=== PATIENT | male | born 1960 | race Two or more races ===

== ENCOUNTER 2023-06-01 13:49 | Outpatient (AMB) | payer MEDICARE, MEDICAID, SELFPAY ==
--- NOTE | 2023-06-01 13:52 | A.OFFPC_ITS ---
Vital Signs 06/01/23 13:55 Height 5 ft 2 in Weight 136 lb BMI 24.9 BP 136/80 Blood Pressure Location Lt brachial Position Sitting Intake Visit Reasons: 3 month f/u Intake Note: Patient here for a 3 month follow up, requesting nebulizer solution Interlibrary [employer] Services Librarian Required: No Accompanied by: Significant Other Allergies No Known Allergies [No Known Allergies*] Allergy (Verified 06/01/23 14:13) Medication List - Last Reconciled 06/01/23 by Ambreen Arvizu MD albuterol sulfate 90 mcg/actuation 2 puffs PO Q4-6H PRN 30 days budesonide-formoterol 80-4.5 mcg/actuation 2 puffs inhalation BID 30 days ibuprofen 400 mg PO Q8H PRN montelukast 10 mg PO BEDTIME sertraline 50 mg PO DAILY 90 days trazodone 100 mg PO BEDTIME PRN 90 days Ventolin HFA 90 mcg/actuation (albuterol sulfate) 2 puffs inhalation Q6H PRN NS Tobacco use date assessed: 06/01/23 Fall risk assessment: No Falls in past year Last assessed Fall Risk: 06/01/23 Dental Screening Dental Screen Date: 06/01/23 Did you have a dental visit in the last 12 months?: No Did you have a dental problem in the last 6 months where you did not have access to dental care?: No Was dental information given to patient?: Patient declined HPI HPI Comments History of Present Illness Details This is a 62-year-old male with COPD, mild major depression, insomnia and chronic back pain that comes today accompanied by girlfriend for follow-up on his conditions. He use rescue inhaler few times a month for his COPD and will be referred again to pulmonology. Depression stable with SSRIs. Insomnia has improved with sleep hygiene measures. Back pain stable with NSAIDs as needed. Denies any fever, bowel or bladder incontinence. No chest pain or shortness of breath. [facility] Medical History Allergic sinusitis COPD (chronic obstructive pulmonary disease) Nicotine dependence, cigarettes, uncomplicated Primary insomnia Surgical History History of colonoscopy Family History Father No problems noted. Mother Family history of cancer of vagina Social History (Updated 06/01/23 @ 14:16 by Ambreen Arvizu MD) Housing: House Alcohol intake: never Patient Tobacco Use Status: Current everyday Tobacco user Tobacco use type: Cigarette Cigarettes Per Day: 10 e-Cigarette/Vaping Use: Never Used Second Hand Smoke Exposure: No service: No Current occupational status: disabled Cognitive needs: No Hearing needs: No Vision needs: No Questionnaire Thrive Questionnaire Date Thrive assessed: 02/24/23 FRANCESCO-7 AMB Questionnaire FRANCESCO-7 Date FRANCESCO - 7 assessed: 02/24/23 Source: Developed by Drs. Silverio Wang, Mile Villalobos, Vinay Banegas and colleagues, with an educational bety from [employer]. Review of Systems Const All systems reviewed & are unremarkable except as noted in HPI and below Eyes Reports no additional complaints, Denies change in vision and Denies other visual disturbances Card Denies chest pain at rest, Denies chest pain with activity, Denies edema, Denies irregular heart rhythm, Denies claudication, Denies dyspnea, Denies dyspnea on exertion, Denies orthopnea, Denies paroxysmal nocturnal dyspnea and Denies slow heart rate Resp Denies cough, Denies dyspnea and Denies dyspnea on exertion GI Denies abdominal pain, Denies change in bowel habits, Denies excessive flatus, Denies nausea and Denies vomiting Denies urinary hesitancy, Denies urinary incontinence and Denies urinary urgency Musc Denies abnormal gait, Denies atrophy, Denies deformity and Denies limited range of motion Skin/Breast Denies bleeding lesions, Denies changing lesions and Denies rash Neuro Denies abnormal gait and Denies lack of coordination Physical exam (Primary Care) Vital Signs: Last Vital Signs BP 136/80 06/01/23 13:55 BMI result Body Mass Index 24.9 Tobacco/Smoking Status: Tobacco use Status Tobacco use date assessed 06/01/23 06/01/23 13:56 Patient Tobacco Use Status Current everyday Tobacco 06/01/23 14:16 Tobacco use type Cigarette 06/01/23 14:16 e-Cigarette/Vaping Use Never Used 06/01/23 14:16 Thrive Assessment: Date of Thrive Assessment Date Thrive assessed 02/24/23 06/01/23 13:53 Eyes General: appearance normal, both eyes and all related structures Eyelids: Yes eyelids normal Conjunctivae: conjunctivae normal Neck Neck: Yes normal visual inspection and Yes supple Resp Effort & Inspection: normal respiratory effort Auscultation: clear to auscultation bilaterally Cardio Jugular venous distension: no JVD Rate: regular rate Rhythm: regular rhythm Heart sounds: S1 normal heart sound present and S2 normal heart sound present Extrem General: Yes full ROM Assessment and Plan Assessment & Plan (1) COPD (chronic obstructive pulmonary disease): Comment: (moderately severe on 2017 PFTs - FVC 70, FEV1 77, FEV1/FVC 69, DLCO 74) Code(s): J44.9 - Chronic obstructive pulmonary disease, unspecified Plan: Continue Symbicort. Use rescue inhaler as needed. (2) Mild recurrent major depression: Code(s): F33.0 - Major depressive disorder, recurrent, mild Plan: Continue SSRIs. (3) Back pain: Code(s): M54.9 - Dorsalgia, unspecified Plan: Continue NSAIDs as needed. (4) Primary insomnia: Code(s): F51.01 - Primary insomnia Plan: Continue sleep hygiene measures. Orders: Referrals Pulmonary Medicine Referral J44.9 - Chronic obstructive pulmonary disease, unspecified Medications: New albuterol sulfate 2.5 mg (3 mL) inhalation Q4H PRN 75 mL 1RF shortness of breath or wheezing 30 days J44.9 - Chronic obstructive pulmonary disease, unspecified Discontinued albuterol sulfate 90 mcg/actuation Discontinued Reason: Insurance Denied 2 puffs PO Q4-6H 30 days PRN 8.5 grams 6RF for wheezing J44.9 - Chronic obstructive pulmonary disease, unspecified Coding Level of Care Code Est Pt Level 4 (43286) Diagnoses COPD (chronic obstructive pulmonary disease) J44.9 Mild recurrent major depression F33.0 Back pain M54.9 Primary insomnia F51.01 Time Spent (min) 22
[2023-06-01 13:55] VITALS: BP 136/80; BMI 24.9
== END 2023-06-01 14:19 | disposition home or self-care (01) ==
PROVIDERS: Visit Provider Internal Medicine
DX: J44.9 Chronic obstructive pulmonary disease, unspecified (principal); F33.0 Major depressive disorder, recurrent, mild; M54.9 Dorsalgia, unspecified; F51.01 Primary insomnia
CPT/HCPCS: 99214

== ENCOUNTER 2024-03-13 14:22 | Outpatient (AMB) | payer MEDICARE, SELFPAY ==
[2024-03-13 14:25] VITALS: BP 122/78; PULSE 67; O2SAT 97; BMI 25.6
--- NOTE | 2024-03-13 14:25 | A.OFFPC_ITS ---
Vital Signs 03/13/24 14:25 Height 5 ft 2 in Weight 140 lb BMI 25.6 BP 122/78 Blood Pressure Location Lt brachial Position Sitting Pulse 67 Pulse Source Pulse Oximeter Pulse Oximetry (%) 97 Oxygen Delivery Method Room Air Intake Visit Reasons: Annual exam Intake Note: Patient here for an annual physical exam Email Marketing Coordinator Required: No Accompanied by: Self / Same As Patient Allergies No Known Allergies [No Known Allergies*] Allergy (Verified 03/13/24 14:38) Medication List - Last Reconciled 03/13/24 by Ambreen Arvizu MD albuterol sulfate 2.5 mg (3 mL) inhalation Q4H PRN 30 days budesonide-formoterol 80-4.5 mcg/actuation 2 puffs inhalation BID 30 days ibuprofen 400 mg PO Q8H PRN montelukast 10 mg PO BEDTIME sertraline 50 mg PO DAILY 90 days trazodone 100 mg PO BEDTIME PRN 90 days Ventolin HFA 90 mcg/actuation (albuterol sulfate) 2 puffs inhalation Q6H PRN NS Tobacco use date assessed: 03/13/24 Fall risk assessment: No Falls in past year Last assessed Fall Risk: 03/13/24 Dental Screening Dental Screen Date: 03/13/24 Did you have a dental visit in the last 12 months?: No Did you have a dental problem in the last 6 months where you did not have access to dental care?: No Was dental information given to patient?: Patient has dentist HPI HPI Comments History of Present Illness Details This is a 63-year-old male with COPD and mild major depression that comes for his physical exam. COPD has been stable with long-acting inhaler and use rescue inhaler less than once a month. Depression well controlled with SSRIs. Follow-up visit was requested. Last colonoscopy was 2015 and was normal and next colonoscopy should be 2025. No chest pain or shortness on breath. No change in bowel or bladder habits. No acute complaints. [facility] Medical History (Updated 03/13/24 @ 14:50 by Ambreen Arvizu MD) Nicotine dependence, cigarettes, uncomplicated Allergic sinusitis COPD (chronic obstructive pulmonary disease) Primary insomnia Surgical History History of colonoscopy Family History Father No problems noted. Mother Family history of cancer of vagina Social History Housing: House Alcohol intake: never Patient Tobacco Use Status: Current everyday Tobacco user Tobacco use type: Cigarette Cigarettes Per Day: 2 e-Cigarette/Vaping Use: Never Used Second Hand Smoke Exposure: No service: No Current occupational status: disabled Cognitive needs: No Hearing needs: No Vision needs: No Questionnaire PHQ-9 Over the last 2 weeks, how often have you been bothered by any of the following problems? 1. Little interest or pleasure in doing things: not at all 2. Feeling down, depressed, or hopeless: more than half the days 3. Trouble falling or staying asleep, or sleeping too much: several days 4. Feeling tired or having little energy: more than half the days 5. Poor appetite or overeating: not at all 6. Feeling bad about yourself - or that you are a failure or have let yourself or your family down: not at all 7. Trouble concentrating on things, such as reading the newspaper or watching television: not at all 8. Moving or speaking so slowly that other people could have noticed. Or the opposite - being so fidgety or restless that you have been moving around a lot more than usual: not at all 9. Thoughts that you would be better off or of hurting yourself in some way: not at all Total score: 5 Depression Screening Interpretation: Positive Depression Screening Follow-up: Existing condition, In treatment and Follow-up Visit Requested Depression Screening Done: Yes 55781 - PHQ-9 Billing: Yes Source: Developed by Drs. Silverio Wang, Mile Villalobos, Vinay Banegas and colleagues, with an educational bety from [employer]. Thrive Questionnaire Date Thrive assessed: 03/13/24 I am a: Patient What is your living situation today?: I have a steady place to live Within the past 12 months, did the food you bought not last and you didn't have the money to get more?: Never true Within the past 12 months, did you worry whether your food would run out before you got money to buy more?: Never true Do you have trouble paying for medicines?: No Do you have trouble getting transportation to medical appointments?: No Do you have trouble paying your heating and electricity bill?: No Do you have trouble taking care of your child, family member or friend?: No Do you have trouble with day-to-day activities such as bathing, preparing meals, shopping, managing finances, etc.?: No Are you currently unemployed and looking for a job?: No Are you interested in more education?: No Please select the resources that you would like help with: None Currently or been in a relationship where the following occur: no concerns reported THRIVE Score: 0 AUDIT C Alcohol Use Questionnaire (AUDIT-C) 1. How often do you have a drink containing alcohol?: Never Total Score: 0 Score Reviewed/Action Taken: No FRANCESCO-7 AMB Questionnaire FRANCESCO-7 Date FRANCESCO - 7 assessed: 03/13/24 Feeling nervous, anxious, or on edge: 1 = Several days Not being able to stop or control worryin = Not at all Worrying too much about different things: 1 = Several days Trouble relaxin = Not at all Being so restless that it is hard to sit still: 0 = Not at all Becoming easily annoyed or irritable: 1 = Several days Feeling afraid as if something awful might happen: 1 = Several days Total FRANCESCO-7 score (0-4 normal; 5-9 mild; 10-14 moderate; 15-21 severe): 4 Source: Developed by Drs. Silverio aWng, Mile Villalobos, Vinay Banegas and colleagues, with an educational bety from [employer]. FRANCESCO-7 Assessment Billing FRANCESCO-7 Assessment Tool: FRANCESCO-7 Assessment 11584 Review of Systems Const All systems reviewed & are unremarkable except as noted in HPI and below Card Denies chest pain at rest, Denies chest pain with activity, Denies edema, Denies irregular heart rhythm, Denies claudication, Denies dyspnea, Denies dyspnea on exertion, Denies orthopnea, Denies paroxysmal nocturnal dyspnea and Denies slow heart rate Resp Denies cough, Denies dyspnea and Denies dyspnea on exertion Physical exam (Primary Care) Vital Signs: Last Vital Signs BP 122/78 03/13/24 14:25 BMI result Body Mass Index 25.6 Tobacco/Smoking Status: Tobacco use Status Tobacco use date assessed 03/13/24 03/13/24 14:32 Patient Tobacco Use Status Current everyday Tobacco 03/13/24 14:32 Tobacco use type Cigarette 03/13/24 14:32 e-Cigarette/Vaping Use Never Used 03/13/24 14:32 PHQ-9: PHQ-9 Score PHQ-9: Total score 5 03/13/24 14:32 Depression Screening Interpretation: Positive Depression Screening Follow-up: Existing condition, In treatment and Follow-up Visit Requested Thrive Assessment: Date of Thrive Assessment Date Thrive assessed 03/13/24 03/13/24 14:32 Currently or been in a relationship where the following occur: no concerns reported Const Orientation/consciousness: patient oriented x3 HENMT Head: Yes normal to inspection, Yes normocephalic and Yes atraumatic Ears: external ears normal Eyes General: appearance normal, both eyes and all related structures Eyelids: Yes eyelids normal Conjunctivae: conjunctivae normal Neck Neck: Yes normal visual inspection and Yes supple Resp Effort & Inspection: normal respiratory effort Auscultation: clear to auscultation bilaterally Cardio Jugular venous distension: no JVD Rate: regular rate Rhythm: regular rhythm Heart sounds: S1 normal heart sound present and S2 normal heart sound present GI Inspection: Yes normal to inspection Palpation (GI): Soft to palpation and nontender Auscultation: normal bowel sounds Skin General skin exam: no rashes or lesions noted Neuro General: patient oriented x3 and no focal motor deficits Extrem General: Yes full ROM Psych Appearance: grossly normal Assessment and Plan Assessment & Plan (1) Physical exam: Code(s): Z00.00 - Encounter for general adult medical examination without abnormal find ings Plan: Repeat in a year. (2) COPD (chronic obstructive pulmonary disease): Comment: (moderately severe on 2017 PFTs - FVC 70, FEV1 77, FEV1/FVC 69, DLCO 74) Code(s): J44.9 - Chronic obstructive pulmonary disease, unspecified Plan: Continue long-acting inhaler. Use rescue inhaler as needed. (3) Mild recurrent major depression: Code(s): F33.0 - Major depressive disorder, recurrent, mild Plan: Continue sertraline. Follow-up visit requested. Medications: Refilled albuterol sulfate 2.5 mg (3 mL) inhalation Q4H 30 days PRN 75 mL 1RF shortness of breath or wheezing J44.9 - Chronic obstructive pulmonary disease, unspecified sertraline 50 mg PO DAILY 90 days 90 tabs 3RF Coding Level of Care Code Est Pt Prev Care >65y(05323) Diagnoses Physical exam Z00.00 COPD (chronic obstructive pulmonary disease) J44.9 Mild recurrent major depression F33.0 Additional Codes FRANCESCO-7 Assessment Billing - FRANCESCO-7 Assessment Tool: FRANCESCO-7 Assessment 64590 ([id number]) Time Spent (min) 33
== END 2024-03-13 14:51 | disposition home or self-care (01) ==
PROVIDERS: PCP Internal Medicine; Visit Provider Internal Medicine
DX: Z00.00 Encounter for general adult medical examination without abnormal findings (principal); J44.9 Chronic obstructive pulmonary disease, unspecified; F33.0 Major depressive disorder, recurrent, mild
CPT/HCPCS: 99214; 99397

== ENCOUNTER 2025-05-06 14:44 | Outpatient (AMB) | payer MEDICARE, MEDICAID, SELFPAY ==
--- NOTE | 2025-05-06 14:59 | MHC.PC.OV ---
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 Accompanied by: Self / Same As Patient Allergies No Known Allergies (No Known Allergies*) Allergy (Verified 05/06/25 15:20) Medication List - Last Reconciled 05/06/25 by Ambreen Arvizu MD albuterol sulfate 2.5 mg (3 mL) inhalation Q4H PRN 30 days budesonide-formoterol 80-4.5 mcg/actuation 2 puffs inhalation BID 30 days ibuprofen 400 mg PO Q8H PRN montelukast 10 mg PO BEDTIME sertraline 50 mg PO DAILY 90 days trazodone 100 mg PO BEDTIME PRN 90 days Ventolin HFA 90 mcg/actuation (albuterol sulfate) 2 puffs inhalation Q6H PRN NS Tobacco use date assessed: 05/06/25 Fall risk assessment: No Falls in past year Last assessed Fall Risk: 05/06/25 Dental Screening Dental Screen Date: 05/06/25 Did you have a dental visit in the last 12 months?: No Did you have a dental problem in the last 6 months where you did not have access to dental care?: No Was dental information given to patient?: Patient has dentist HPI HPI Comments History of Present Illness Details The patient is a 64-year-old male presenting for management of chronic conditions and preventative care. The patient has a history of Chronic Obstructive Pulmonary Disease (COPD) and is currently not under the care of a professor of architecture for this condition. He uses an albuterol inhaler and another inhaler twice daily, which is important for managing his COPD. The patient also has a history of depression, for which he is prescribed sertraline. His PHQ-9 score is 5, indicating low depression, and he is not currently seeing a psychiatrist. In terms of preventative care, the patient underwent a colonoscopy in 2015 and is due for another in 2025. He received a pneumonia vaccine in 1963 and is scheduled for subsequent vaccinations in 1964, 1966, 1967, and 1968. The patient smokes approximately two cigarettes a day, and there is a discussion about quitting smoking. [facility] Medical History Nicotine dependence, cigarettes, uncomplicated Allergic sinusitis COPD (chronic obstructive pulmonary disease) Primary insomnia Surgical History History of colonoscopy Family History Father No problems noted. Mother Family history of cancer of vagina Social History Housing: House Alcohol intake: never Patient Tobacco Use Status: Current everyday Tobacco user Tobacco use type: Cigarette Cigarettes Per Day: 2 e-Cigarette/Vaping Use: Never Used Second Hand Smoke Exposure: No service: No Current occupational status: disabled Cognitive needs: No Hearing needs: No Vision needs: No Questionnaire PHQ-9 Over the last 2 weeks, how often have you been bothered by any of the following problems? 1. Little interest or pleasure in doing things: not at all 2. Feeling down, depressed, or hopeless: more than half the days 3. Trouble falling or staying asleep, or sleeping too much: several days 4. Feeling tired or having little energy: more than half the days 5. Poor appetite or overeating: not at all 6. Feeling bad about yourself - or that you are a failure or have let yourself or your family down: not at all 7. Trouble concentrating on things, such as reading the newspaper or watching television: not at all 8. Moving or speaking so slowly that other people could have noticed. Or the opposite - being so fidgety or restless that you have been moving around a lot more than usual: not at all 9. Thoughts that you would be better off or of hurting yourself in some way: not at all Total score: 5 Depression Screening Interpretation: Positive Depression Screening Follow-up: Existing condition, In treatment and Follow-up Visit Requested Depression Screening Done: Yes 64404 - PHQ-9 Billing: Yes Source: Developed by Drs. Silverio Wang, Mile Villalobos, Vinay Banegas and colleagues, with an educational bety from [employer]. Thrive Questionnaire Date Thrive assessed: 05/06/25 I am a: Patient What is your living situation today?: I have a steady place to live Within the past 12 months, did the food you bought not last and you didn't have the money to get more?: Never true Within the past 12 months, did you worry whether your food would run out before you got money to buy more?: Never true Do you have trouble paying for medicines?: No Do you have trouble getting transportation to medical appointments?: No Do you have trouble paying your heating and electricity bill?: No Do you have trouble taking care of your child, family member or friend?: No Do you have trouble with day-to-day activities such as bathing, preparing meals, shopping, managing finances, etc.?: No Are you currently unemployed and looking for a job?: No Are you interested in more education?: No Please select the resources that you would like help with: None Currently or been in a relationship where the following occur: No concerns reported THRIVE Score: 0 AUDIT C Alcohol Use Questionnaire (AUDIT-C) 1. How often do you have a drink containing alcohol?: Never Total Score: 0 Score Reviewed/Action Taken: No FRANCESCO-7 AMB Questionnaire FRANCESCO-7 Date FRANCESCO - 7 assessed: 05/06/25 Feeling nervous, anxious, or on edge: 1 = Several days Not being able to stop or control worryin = Not at all Worrying too much about different things: 1 = Several days Trouble relaxin = Not at all Being so restless that it is hard to sit still: 0 = Not at all Becoming easily annoyed or irritable: 1 = Several days Feeling afraid as if something awful might happen: 1 = Several days Total FRANCESCO-7 score (0-4 normal; 5-9 mild; 10-14 moderate; 15-21 severe): 4 Source: Developed by Drs. Silverio Wang, Mile Villalobos, Vinay Banegas and colleagues, with an educational bety from [employer]. FRANCESCO-7 Assessment Billing FRANCESCO-7 Assessment Tool: FRANCESCO-7 Assessment 87812 Review of Systems Const All systems reviewed & are unremarkable except as noted in HPI and below Card Denies chest pain at rest, Denies chest pain with activity, Denies edema, Denies irregular heart rhythm, Denies claudication, Denies dyspnea, Denies dyspnea on exertion, Denies orthopnea, Denies paroxysmal nocturnal dyspnea and Denies slow heart rate Resp Denies cough, Denies dyspnea and Denies dyspnea on exertion GI Denies abdominal pain, Denies change in bowel habits, Denies excessive flatus, Denies nausea and Denies vomiting Physical exam (Primary Care) Vital Signs: Last Vital Signs BP 114/68 05/06/25 15:02 BMI result Body Mass Index 25.6 Tobacco/Smoking Status: Tobacco use Status Tobacco use date assessed 05/06/25 05/06/25 15:06 Patient Tobacco Use Status Current everyday Tobacco 05/06/25 15:06 Tobacco use type Cigarette 05/06/25 15:06 e-Cigarette/Vaping Use Never Used 05/06/25 15:06 PHQ-9: PHQ-9 Score PHQ-9: Total score 5 05/06/25 15:25 Depression Screening Interpretation: Positive Depression Screening Follow-up: Existing condition, In treatment and Follow-up Visit Requested Thrive Assessment: Date of Thrive Assessment Date Thrive assessed 05/06/25 05/06/25 15:06 Currently or been in a relationship where the following occur: No concerns reported Resp Effort & Inspection: normal respiratory effort Auscultation: clear to auscultation bilaterally Cardio Jugular venous distension: no JVD Rate: regular rate Rhythm: regular rhythm Heart sounds: S1 normal heart sound present and S2 normal heart sound present Extrem General: Yes full ROM Coding Level of Care Code Est Pt Level 3 (11475) Complex EM visit Add On G2211 Diagnoses Mild recurrent major depression F33.0 COPD (chronic obstructive pulmonary disease) J44.9 Primary insomnia F51.01 Additional Codes FRANCESCO-7 Assessment Billing - FRANCESCO-7 Assessment Tool: FRANCESCO-7 Assessment 26520 ([id number]) PHQ-9 - 40465 - PHQ-9 Billing: Yes ([id number]) Time Spent (min) 19 Assessment & Plan Assessment & Plan (1) Mild recurrent major depression: Code(s): F33.0 - Major depressive disorder, recurrent, mild Category: Medical (2) COPD (chronic obstructive pulmonary disease): Comment: (moderately severe on 2017 PFTs - FVC 70, FEV1 77, FEV1/FVC 69, DLCO 74) Code(s): J44.9 - Chronic obstructive pulmonary disease, unspecified Category: Medical (3) Primary insomnia: Code(s): F51.01 - Primary insomnia Category: Medical Plan The patient will continue using the albuterol inhaler and the other inhaler twice daily for COPD management. A referral to a professor of architecture will be made for further evaluation and management of COPD, as the patient has not seen one in a couple of years. For depression, the patient will continue taking sertraline, and no referral to a psychiatrist is deemed necessary at this time due to the low PHQ-9 score. Preventative care measures include scheduling a colonoscopy for 2025 and ensuring pneumonia vaccinations are up to date as per the discussed schedule. The patient is advised to consider smoking cessation, given the current habit of smoking approximately two cigarettes a day. Patient was informed and verbally consented to the use of an ambient scribe for clinic note documentation during this visit. Medications: Refilled Ventolin HFA 90 mcg/actuation (albuterol sulfate) 2 puffs inhalation Q6H PRN 18 ea 0RF for wheezing NS
[2025-05-06 15:02] VITALS: BP 114/68; BMI 25.6
== END 2025-05-06 15:28 | disposition home or self-care (01) ==
LOC: HO.HMCH 14:44
PROVIDERS: PCP Internal Medicine; Visit Provider Internal Medicine
DX: F33.0 Major depressive disorder, recurrent, mild (principal); J44.9 Chronic obstructive pulmonary disease, unspecified; F51.01 Primary insomnia

== ENCOUNTER → 2025-05-06 14:44 | Outpatient (BNVA) | payer MEDICARE, SELFPAY | PROVIDERS: PCP Internal Medicine; Visit Provider Internal Medicine | DX: F33.0 Major depressive disorder, recurrent, mild (principal); J44.9 Chronic obstructive pulmonary disease, unspecified; F51.01 Primary insomnia | CPT/HCPCS: 96127; 99212 ==